=== PATIENT | male | born 1970 | race Caucasian/White ===

== ENCOUNTER 2016-12-11 13:18 | Day surgery (SDC) | payer OTHER ==
[~2016-12-11] VITALS: Ht 167.6 cm; Wt 102.1 kg
[2016-12-11 15:19] VITALS: Ht 167.6 cm; Wt 102.1 kg
[2016-12-11] MEDS ORDERED: LIDOCAINE 100 MG SYRINGE ONE (15:26)
[2016-12-11] MEDS ORDERED: PROPOFOL 40 ML ONE (15:26)
[2016-12-11] MEDS ORDERED: FENTAnyl 50 MCG/ML VIAL ONE (15:27)
[2016-12-11 15:49] VITALS: BP 133/70; PULSE 102; RESP 17
[2016-12-11 16:33] VITALS: BP 125/73; PULSE 87; RESP 12
--- NOTE | 2016-12-11 16:38 | GILP ---
DATE OF PROCEDURE: NAME OF PROCEDURE: Colonoscopy and polypectomy. SURGEON: Zak Jain MD PREOPERATIVE DIAGNOSIS: Positive occult blood in the stool. POSTOPERATIVE DIAGNOSES: 1. Colonoscopy all the way to the cecum. 2. Right colon polyp was removed using the snare and electrocautery. 3. Internal hemorrhoids. INDICATION FOR THE PROCEDURE: Mr. Nam Ross is a 46-year-old male patient who was noted to h ave positive occult blood in the stool. The patient was scheduled for colonoscopy for further evalu ation. The procedure and possible complications were well explained to the patient. He understood and con sented to the procedure. DESCRIPTION OF PROCEDURE: Under the influence of anesthesia the colonoscope was carefully introduce d in the rectum and under direct vision it was advanced all the way to the cecum. FINDINGS: The patient had a right colon polyp and it was removed using the snare and electrocautery . He was noted to have internal hemorrhoids. He tolerated the procedure very well and there was no complication from the procedure. At the end o f the procedure he was awake with stable vital signs and he was discharged home to the care of his [facility]. IMPRESSION: 1. Colonoscopy all the way to the cecum. 2. Right colon polyp was removed using the snare and electrocautery. 3. Internal hemorrhoids. PLAN: 1. Await histopathology report. 2. Next screening colonoscopy in 10 years. Dictated By: ZAK BACK/DUGLAS Conf#: [id number] DID#: [id number]
[2016-12-11] MEDS ORDERED: LANTUS SUBCUTANE (17:05)
[2016-12-11] MEDS ORDERED: LEVOTHYROXINE PO (17:05)
[2016-12-11] MEDS ORDERED: OMEPRAZOLE PO (17:05)
[2016-12-11] MEDS ORDERED: JANUVIA PO (17:05)
[2016-12-11] MEDS ORDERED: LISINOPRIL PO (17:05)
[2016-12-11] MEDS ORDERED: DICLOFENAC PO (17:05)
[2016-12-11] MEDS ORDERED: ASPI-535 PO (17:05)
[2016-12-11] MEDS ORDERED: PRAVASTATIN PO (17:05)
== END 2016-12-11 16:25 | disposition home or self-care (01) ==
LOC: GIL 13:18
PROVIDERS: ATTEND Internal Medicine Gastroenterology
DX: Z12.11 Encounter for screening for malignant neoplasm of colon (principal); K63.5 Polyp of colon; K64.8 Other hemorrhoids; E66.9 Obesity, unspecified; Z68.36 Body mass index [BMI] 36.0-36.9, adult
CPT/HCPCS: 45385; 88305; J2001; J3010; Z7610